=== PATIENT | male | born 1965 | race African-American/Black ===

== ENCOUNTER 2017-12-13 08:20 | Inpatient (IN) | payer OTHER ==
[~2017-12-13] VITALS: Ht 188 cm; Wt 129.0 kg
[~2017-12-13 08:20] MED LIST: ASPIRIN325 MG PO; ASPIRIN81 M2 PO; BENICAR5 MG PO; CARDIZEM CD120 MG PO; CARDIZEM30 MG PO; CATAPRES0.1 MG PO; CLINDAMYCIN HC300 MG PO; ENDOCET 5-3251 EACH PO; FLONASE16 G1 BOTH NARES; HYTRIN1 MG PO; KLONOPIN0.125 MG PO; LISINOPRIL40 MG PO; MONTELUKAST SOD10 MG PO; MULTI-VITAMIN1 EAC4 PO; NOHOMEMEDS; OMEPRAZOLE40 M1 PO; PRINIVIL5 MG PO; PRINZIDE 20-121 EACH PO; PROVENTIL HFA6.7 GM IH; TESSALON200 MG PO; Voltaren PO
[2017-12-13 09:14] LABS: BASOPHIL (%) 0.2 % (0-1); EOSINOPHIL (%) 2.4 % (0-5); EOSINOPHIL COUNT 0.1 K/uL (0-0.3); HEMATOCRIT 37.5 % (38.0-50.0); IMMATURE GRANULOCYTE (%) 0.6 % (0.0-0.7); LYMPHOCYTE (%) 26.6 % (15-42); LYMPHOCYTE COUNT 1.3 K/uL (1.0-2.8); MCH 33.6 PG (29.0-34.0); MCHC 34.7 G/DL (30.0-36.0); MCV 96.9 FL (86-99); MONOCYTE (%) 10.9 % (3-12); MONOCYTE COUNT 0.5 K/uL (0-0.8); NEUTROPHIL (%) 59.3 % (45-76); PLATELET COUNT 195 K/uL (156-360); RBC DIS.WIDTH-CV 13.5 % (11.8-14.6); RBC DIS.WIDTH-SD 48.5 % (39-53); RED BLOOD COUNT 3.87 M/uL (4.00-5.50)
[2017-12-13 09:26] LABS: INTER. NORMALIZED RATIO 1.1
[2017-12-13 09:38] LABS: CHLORIDE 110 mEq/L (99-109); POTASSIUM 4.2 mEq/L (3.7-5.4); SODIUM 141 mEq/L (136-147)
[2017-12-13 09:40] LABS: GLUCOSE 101 mg/dL (70-99)
[2017-12-13 09:44] LABS: CREATININE 0.9 mg/dL (0.6-1.3); GFR ESTIMATE (CALCULATED) > 59 mL/min/ (58.99-99999)
[2017-12-13 09:45] LABS: UREA NITROGEN (BUN) 14 mg/dL (9-23)
[2017-12-13] MEDS ORDERED: LATANOPROST2.5 ML BOTH EYES (11:25)
[2017-12-13 13:31] VITALS: BP 175/88
[2017-12-13 15:17] VITALS: BP 136/93
[2017-12-13 18:16] LABS: HEMATOCRIT 36.7 % (38.0-50.0); HEMOGLOBIN 12.5 G/DL (12.5-16.6); MCV 97.3 FL (86-99)
[2017-12-13 23:30] VITALS: BP 127/77
[2017-12-14 00:52] LABS: HEMATOCRIT 35.6 % (38.0-50.0); HEMOGLOBIN 12.5 G/DL (12.5-16.6); MCV 96.5 FL (86-99)
[2017-12-14 04:38] VITALS: BP 104/73
[2017-12-14 05:54] LABS: HEMATOCRIT 35.1 % (38.0-50.0); HEMOGLOBIN 11.9 G/DL (12.5-16.6); MCV 97.2 FL (86-99)
[2017-12-14 06:20] LABS: ALBUMIN 3.3 G/DL (3.2-4.8); ALKALINE PHOSPHATASE 47 IU/L (3-129); ALT (GPT) 14 IU/L (3-49); AST (GOT) 14 IU/L (2-34); CHLORIDE 104 MEQ/L (99-109); DIRECT BILIRUBIN 0.2 mg/dL (0.0-0.3); GFR ESTIMATE (CALCULATED) > 59 mL/min/ (58.99-99999); GLUCOSE 86 mg/dL (70-99); POTASSIUM 3.8 MEQ/L (3.7-5.4); SODIUM 138 MEQ/L (136-147); TOTAL PROTEIN 5.8 G/DL (6.4-8.3); UREA NITROGEN (BUN) 12 mg/dL (9-23)
[2017-12-14 07:32] VITALS: BP 118/67
[2017-12-14 11:26] LABS: HEMATOCRIT 35.3 % (38.0-50.0); HEMOGLOBIN 12.3 G/DL (12.5-16.6); MCV 97.5 FL (86-99)
[2017-12-14 11:31] VITALS: BP 134/77
[2017-12-14 15:36] VITALS: BP 122/76
[2017-12-14 20:00] VITALS: BP 156/76
[2017-12-14 20:36] LABS: HEMATOCRIT 36.7 % (38.0-50.0); HEMOGLOBIN 12.8 G/DL (12.5-16.6); MCV 96.8 FL (86-99)
[2017-12-15] VITALS: BP 102/66
[2017-12-15 03:54] VITALS: BP 92/57
[2017-12-15 07:37] VITALS: BP 106/64
[2017-12-15 08:49] LABS: HEMATOCRIT 34.7 % (38.0-50.0); HEMOGLOBIN 12.1 G/DL (12.5-16.6); MCV 97.5 FL (86-99)
[2017-12-15 12:06] VITALS: BP 129/65
== END 2017-12-15 16:20 | disposition home or self-care (01) | DRG 378 ==
LOC: EME 08:20 → EDOF 11:46 → ENRESERV 11:49 → EDOF 11:53 → ENRESERV 11:57 → 5WEST 13:12
PROVIDERS: Emergency Medicine; Internal Medicine
DX: K57.31 Diverticulosis of large intestine without perforation or abscess with bleeding (principal); K52.9 Noninfective gastroenteritis and colitis, unspecified; D62 Acute posthemorrhagic anemia; H40.9 Unspecified glaucoma; I10 Essential (primary) hypertension; K21.9 Gastro-esophageal reflux disease without esophagitis; N40.0 Benign prostatic hyperplasia without lower urinary tract symptoms; F32.9 Major depressive disorder, single episode, unspecified; E66.9 Obesity, unspecified; Z91.19 Patient's noncompliance with other medical treatment and regimen; Z68.36 Body mass index [BMI] 36.0-36.9, adult
CPT/HCPCS: 74177; 80048; 80076; 85014; 85018; 85025; 85610; 86850; 86900; 86901; 86920; 99281; 99285; C9113; G0378; J7030

== ENCOUNTER 2018-04-13 07:05 | Observation (INO) | payer OTHER ==
[~2018-04-13] VITALS: Ht 188 cm; Wt 122.7 kg
[~2018-04-13 07:05] MED LIST changes: +LATANOPROST2.5 ML BOTH EYES
[2018-04-13 07:39] LABS: HEMATOCRIT 38.8 % (38.0-50.0); HEMOGLOBIN 13.9 G/DL (12.5-16.6); MCH 33.3 PG (29.0-34.0); MCHC 35.8 G/DL (30.0-36.0); MCV 92.8 FL (86-99); PLATELET COUNT 225 K/uL (156-360); RBC DIS.WIDTH-CV 13.7 % (11.8-14.6); RBC DIS.WIDTH-SD 46.9 % (39-53); RED BLOOD COUNT 4.18 M/uL (4.00-5.50); WHITE BLOOD COUNT 5.1 K/uL (4.1-10.2)
[2018-04-13 08:06] LABS: ALBUMIN 3.7 G/DL (3.2-4.8); ALKALINE PHOSPHATASE 53 IU/L (3-129); ALT (GPT) 26 IU/L (3-49); AST (GOT) 35 IU/L (2-34); CHLORIDE 101 MEQ/L (99-109); CREATININE 1.1 MG/DL (0.6-1.3); GFR ESTIMATE (CALCULATED) > 59 mL/min/ (58.99-99999); GLUCOSE 97 mg/dL (70-99); POTASSIUM 3.8 MEQ/L (3.7-5.4); SODIUM 137 MEQ/L (136-147); TOTAL BILIRUBIN 0.9 MG/DL (0.0-1.0); TOTAL PROTEIN 7.3 G/DL (6.4-8.3); UREA NITROGEN (BUN) 15 mg/dL (9-23)
[2018-04-13 08:57] LABS: C DIFF TOXIN NEGATIVE (NEGATIVE)
[2018-04-13 10:26] LABS: HEMATOCRIT 36.9 % (38.0-50.0); HEMOGLOBIN 13.1 G/DL (12.5-16.6); MCV 92.7 FL (86-99)
[2018-04-13 15:58] VITALS: BP 161/95
[2018-04-13 16:14] LABS: MCV 92.7 FL (86-99)
[2018-04-13 19:40] VITALS: BP 135/82
[2018-04-13 21:55] LABS: HEMATOCRIT 35.3 % (38.0-50.0); HEMOGLOBIN 12.3 G/DL (12.5-16.6); MCV 93.1 FL (86-99)
[2018-04-14 03:28] VITALS: BP 136/86
[2018-04-14 05:14] LABS: HEMATOCRIT 32.8 % (38.0-50.0); HEMOGLOBIN 11.3 G/DL (12.5-16.6); MCV 94.3 FL (86-99)
[2018-04-14 07:44] VITALS: BP 142/84
[2018-04-14 09:52] LABS: HEMATOCRIT 34.8 % (38.0-50.0); MCV 94.8 FL (86-99)
[2018-04-14 11:47] VITALS: BP 114/65
== END 2018-04-14 13:58 | disposition home or self-care (01) ==
LOC: EME 07:05 → EDOF 14:18 → 4SOUTH 14:18 → EDOF 14:18 → ENRESERV 14:23 → 4SOUTH 15:45
PROVIDERS: Nurse Practitioner Family; Physician Assistant
DX: K57.31 Diverticulosis of large intestine without perforation or abscess with bleeding (principal); I10 Essential (primary) hypertension; N40.0 Benign prostatic hyperplasia without lower urinary tract symptoms; E66.9 Obesity, unspecified; H40.9 Unspecified glaucoma; Z80.0 Family history of malignant neoplasm of digestive organs; Z72.0 Tobacco use
CPT/HCPCS: 74177; 80053; 81003; 83630; 85014; 85018; 85027; 86850; 86900; 86901; 87493; 87506; 99281; 99285; G0378; J7030